=== PATIENT | male | born 1955 | race African-American/Black ===

== ENCOUNTER 2016-10-04 08:40 | Emergency (ER) | payer OTHER ==
[~2016-10-04] VITALS: Ht 177.8 cm; Wt 88.6 kg
[~2016-10-04 08:40] MED LIST: DICL75 PO
[2016-10-04 08:42] VITALS: BP 167/98; PULSE 104; RESP 16; TEMP 98; O2SAT 98
[2016-10-04] MEDS ORDERED: [UNRECOGNIZED DRUG - CODE] IM (09:27)
--- NOTE | 2016-10-04 09:30 | PD ---
HPI Chief Complaint: Complaint Time Seen by Provider: 09:11 Travel History International Travel<30 days: No Contact w/Intl Traveler<30days: No Traveled to known affect area: No History of Present Illness HPI This is a 60-year-old male who used an injection prescribed to him for erectile dysfunction and had some bleeding afterwards which concerned him that he might of hit an artery. Medication is been using includes papaverine, phentolamine and alprostadil and he obtained it on the internet. He says it still oozing some. He said no swelling of his penis. He says the bleeding has decreased that he just wanted to come to the emergency department to get checked. PFSH Past Medical History Asthma: Yes Cerebrovascular Accident: No Diabetes: No Hypertension: Yes Respiratory: Yes (ASTHMA) Immunizations Current: Yes Myocardial Infarction: No Social History Alcohol Use: Yes (OCCASIONALLY) Tobacco Use: No Substance Use: No Allergies-Medications (Allergen,Severity, Reaction): Uncoded Allergies: ASTHMA MED (Allergy, Severe, 05/11/16) Reported Meds & Prescriptions Reported Meds & Active Scripts Active Reported Papaverine Inj (Papaverine HCl) 30 Mg/Ml Inj 15 Mg IM ONCE Review of Systems Except as stated in HPI: all other systems reviewed are Neg Physical Exam Narrative GENERAL: Well-appearing, no acute distress, nontoxic SKIN: Warm and dry. HEAD: Atraumatic. Normocephalic. ENT: No nasal bleeding or discharge. Moist mucous membranes : dark blood at the urethral meatus, no swelling or deformity of the penis MUSCULOSKELETAL: No obvious deformities. NEUROLOGICAL: Awake and alert. No obvious cranial nerve deficits. Motor grossly within normal limits. Normal speech. PSYCHIATRIC: Appropriate mood and affect; insight and judgment normal. Data Data Last Documented VS Vital Signs Date Time Temp Pulse Resp B/P Pulse Ox O2 Delivery O2 Flow Rate FiO2 10/04/16 09:28 18 10/04/16 08:42 98.0 104 167/98 98 MDM Medical Decision Making Medical Screen Exam Complete: Yes Emergency Medical Condition: Yes Differential Diagnosis Venous injury, arterial injury, urinary tract infection, malignancy Narrative Course This is a 60-year-old male who presents the emergency department with bleeding from the urethral meatus following an injection of and a rectal dysfunction medication. Currently his bleeding has subsided. He has a benign exam. I do think he requires follow-up with the urologist and I explained that to him. At this time I don't think this reflects a urologic emergency. Patient will be discharged home. Diagnosis Primary Impression: Penile bleeding Referrals: Landen Garcia MD Patient Instructions: General Instructions Additional Instructions: If you develop increasing bleeding, swelling, severe pain or inability to urinate return to the emergency room. Follow-up with a urologist without fail. Med/Other Pt SpecificInfo: No Change to Meds Disposition: 01 DISCHARGE HOME Condition: Stable Hellen Trujillo MD Oct 04, 2016 09:30
== END 2016-10-04 09:48 | disposition home or self-care (01) ==
LOC: NEPE 08:40
DX: T80.89XA Other complications following infusion, transfusion and therapeutic injection, initial encounter (principal); N52.9 Male erectile dysfunction, unspecified; J45.909 Unspecified asthma, uncomplicated; I10 Essential (primary) hypertension; N36.8 Other specified disorders of urethra
CPT/HCPCS: 99283

== ENCOUNTER 2017-03-11 09:12 | Emergency (ER) | payer OTHER ==
[~2017-03-11] VITALS: Ht 177.8 cm; Wt 90.0 kg
[~2017-03-11 09:12] MED LIST changes: -DICL75 PO; +[UNRECOGNIZED DRUG - CODE] IM
[2017-03-11 09:14] VITALS: BP 167/103; PULSE 81; RESP 18; TEMP 98.4; O2SAT 97
[2017-03-11] MEDS ORDERED: ACETAMINOPHEN 325 MG TAB PO ONE (09:45)
--- NOTE | 2017-03-11 09:49 | PD ---
HPI Chief Complaint: Injury Time Seen by Provider: 09:43 Travel History International Travel<30 days: No Contact w/Intl Traveler<30days: No Traveled to known affect area: No History of Present Illness HPI 61-year-old male presents emergency Department with complaint of right knee pain after tripping over a chair and falling and landing on his right knee. Denies hitting his head or loss of consciousness. Denies anticoagulants. Denies neck pain or back pain. Pain is to the patellar aspect. Is ambulatory on the affected extremity. Denies paresthesias, loss of sensation, decreased range of motion or decreased strength to the affected extremity. Has not taken any medications or tried any treatments to relieve the symptoms. Pain is aggravated with ambulation and movement. Allergy to an asthma medication that he doesn't know the name of. Has no other medical complaints. No other modifying factors or associated signs and symptoms. PFSH Past Medical History Asthma: Yes Cerebrovascular Accident: No Diabetes: No Hypertension: Yes Respiratory: Yes (ASTHMA) Immunizations Current: Yes Myocardial Infarction: No Past Surgical History Surgical History: No Previous Surgery Social History Alcohol Use: Yes (OCCASIONALLY) Tobacco Use: No Substance Use: No Allergies-Medications (Allergen,Severity, Reaction): Uncoded Allergies: ASTHMA MED (Allergy, Severe, 05/11/16) Reported Meds & Prescriptions Reported Meds & Active Scripts Active Reported Papaverine Inj (Papaverine HCl) 30 Mg/Ml Inj 15 Mg IM ONCE Review of Systems Except as stated in HPI: all other systems reviewed are Neg Physical Exam Narrative GENERAL: Well-nourished, well-developed male patient, in no acute distress; afebrile, nontoxic-appearing SKIN: Warm and dry. HEAD: Atraumatic. Normocephalic. EYES: Pupils equal and round. No scleral icterus. No injection or drainage. ENT: Mucosa pink and moist. Airway patent. NECK: Trachea midline. CARDIOVASCULAR: Regular rate. RESPIRATORY: No accessory muscle use. GASTROINTESTINAL: Rounded. MUSCULOSKELETAL: Right knee nonedematous, nonerythematous, and without ecchymosis; full range of motion and flexion to 90; point tenderness to the patellar aspect; joint stable with negative drawer test; no obvious deformity. Right Lower extremity is supple and non-tense with 2+ pedal pulse and sensory intact and without erythema or edema. Ambulatory in the hallway with normal gait. NEUROLOGICAL: Awake and alert. Oriented 3. No obvious cranial nerve deficits. Motor grossly within normal limits. Normal speech. PSYCHIATRIC: Appropriate mood and affect; insight and judgment normal. Data Data Last Documented VS Vital Signs Date Time Temp Pulse Resp B/P Pulse Ox O2 Delivery O2 Flow Rate FiO2 03/11/17 09:14 98.4 81 18 167/103 97 Room Air Orders Knee, Complete (4vws) (03/11/17 09:42) Acetaminophen (Tylenol) (03/11/17 09:45) MDM Medical Decision Making Medical Screen Exam Complete: Yes Emergency Medical Condition: Yes Medical Record Reviewed: Yes Differential Diagnosis Patellar fracture, knee contusion, fall Narrative Course 61-year-old male with right knee injury after a mechanical fall today. Tylenol administered in the ER. Right knee x-ray ordered. 1114: Last 24 hours Impressions Knee X-Ray 03/11/17941 Signed Impressions: Service Date/Time: February 09:54 - CONCLUSION: Suspected osteochondral fracture of the inferior distal patella. Correlation with physical examination is recommended. MRI examination may be performed if there is continued clinical uncertainty. Iván Paul MD Canvas knee splint ordered. Crutches ordered for support. Instructed patient to follow up with orthopedics. 1121: Patient is refusing canvas knee splint and crutches. I discussed leaving AMA with the patient. AMA: The risks of leaving against medical advice without further evaluation treatment were discussed with the patient. These risks include cardiac dysfunction, cardiac dysrhythmia, possible heart attack, possible stroke or . The patient indicated understanding of these risks and appeared to have the capacity to make this decision. Diagnosis Primary Impression: Left against medical advice Disposition: 07 AGAINST MEDICAL ADVICE Socorro Hillman Mar 11, 2017 09:49
--- NOTE | 2017-03-11 10:49 | RADRPT ---
EXAM DATE/TIME: 03/11/2017 09:54 [facility] COMPARISON: No previous studies available for comparison. INDICATIONS : Right knee pain; fall today. MEDICAL HISTORY : None. SURGICAL HISTORY : None. ENCOUNTER: Initial ACUITY: 1 day PAIN SCORE: 5/10 LOCATION: anterior knee FINDINGS: There is an apparent minimally displaced osteochondral fracture of the inferior distal patella. [place] us structures are otherwise intact. There is no significant joint effusion. CONCLUSION: Suspected osteochondral fracture of the inferior distal patella. Correlation with physical examinatio n is recommended. MRI examination may be performed if there is continued clinical uncertainty. Iván Paul MD on March 11, 2017 at 10:36 Board Certified Radiologist. This report was verified electronically.
[2017-03-11] MEDS ORDERED: IBUP800T23 PO (11:18)
== END 2017-03-11 11:41 | disposition left against medical advice (07) ==
LOC: NEPD 09:12
DX: M25.561 Pain in right knee (principal); J45.909 Unspecified asthma, uncomplicated; I10 Essential (primary) hypertension; Z79.899 Other long term (current) drug therapy
CPT/HCPCS: 73564; 99283

== ENCOUNTER 2017-03-12 12:17 | Emergency (ER) | payer OTHER ==
[~2017-03-12] VITALS: Ht 177.8 cm; Wt 90.0 kg
[2017-03-12 12:18] VITALS: BP 157/91; PULSE 73; RESP 15; TEMP 98.2; O2SAT 99
--- NOTE | 2017-03-12 12:28 | PD ---
HPI Chief Complaint: Injury Time Seen by Provider: 12:25 Travel History International Travel<30 days: No Contact w/Intl Traveler<30days: No Traveled to known affect area: No History of Present Illness HPI 61-year-old male here requesting knee splint after he left AMA yesterday. He had had a mechanical fall was seen in the ER with an x-ray showing a possible osteochondral fracture of the inferior distal patella. Patient was recommended to do knee immobilizer, crutches and follow-up with or there as an outpatient for possible MRI but he left AMA. He is back now requesting splint and crutches. PFSH Past Medical History Asthma: Yes Cerebrovascular Accident: No Diabetes: No Hypertension: Yes Respiratory: Yes (ASTHMA) Immunizations Current: Yes Myocardial Infarction: No Social History Alcohol Use: Yes (OCCASIONALLY) Tobacco Use: No Substance Use: No Allergies-Medications (Allergen,Severity, Reaction): Uncoded Allergies: ASTHMA MED (Allergy, Severe, 05/11/16) Reported Meds & Prescriptions Reported Meds & Active Scripts Active Reported Papaverine Inj (Papaverine HCl) 30 Mg/Ml Inj 15 Mg IM ONCE Review of Systems Except as stated in HPI: all other systems reviewed are Neg Physical Exam Narrative GENERAL: Well-appearing male in no acute distress SKIN: Focused skin assessment warm/dry. CARDIOVASCULAR: Regular rate and rhythm. RESPIRATORY: No accessory muscle use. MUSCULOSKELETAL: Right knee with swelling about the patella minimal with mild tenderness palpation in this region. Full pain-free range of motion NEUROLOGICAL: Awake and alert. Normal speech. PSYCHIATRIC: Appropriate mood and affect; insight and judgment normal. Data Data Last Documented VS Vital Signs Date Time Temp Pulse Resp B/P Pulse Ox O2 Delivery O2 Flow Rate FiO2 03/12/17 12:18 98.2 73 15 157/91 99 Orders ^ Knee Immobilizer (03/12/17 12:26) Crutches (03/12/17 12:26) MDM Medical Decision Making Medical Screen Exam Complete: Yes Emergency Medical Condition: Yes Medical Record Reviewed: Yes Differential Diagnosis 61-year-old male with knee pain after fall, x-ray yesterday shows possible osteochondral fracture of the patella. He refused crutches, immobilizer and left AMA. Narrative Course Patient was agreeable to crutches and knee immobilizer, outpatient orthopedic surgery follow-up. Diagnosis Primary Impression: Patellar fracture Qualified Code: S82.014A - Closed nondisplaced osteochondral fracture of right patella, initial encounter Referrals: Emory Mei MD call for appointment Additional Instructions: Knee immobilizer and crutches. Follow-up with orthopedic surgeon as discussed. Med/Other Pt SpecificInfo: No Change to Meds Disposition: 01 DISCHARGE HOME Condition: Stable Lesia Villeda MD Mar 12, 2017 12:28
== END 2017-03-12 12:50 | disposition home or self-care (01) ==
LOC: NEPD 12:17
DX: S82.001A Unspecified fracture of right patella, initial encounter for closed fracture (principal); J45.909 Unspecified asthma, uncomplicated; I10 Essential (primary) hypertension; W18.30XA Fall on same level, unspecified, initial encounter; Z79.899 Other long term (current) drug therapy
CPT/HCPCS: 99282; E0113; L1830

== ENCOUNTER 2017-04-20 10:51 | Emergency (ER) | payer OTHER ==
[~2017-04-20] VITALS: Ht 177.8 cm; Wt 90.0 kg
[2017-04-20 10:53] VITALS: BP 187/109; PULSE 97; RESP 15; TEMP 98.2; O2SAT 99
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
[2017-04-20] MEDS ORDERED: IBUP800T23 PO (11:39)
[2017-04-20] MEDS ORDERED: ROBA500T PO (11:39)
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
[2017-04-20] MEDS ORDERED: METHOCARBAMOL 500 MG TAB PO ONE (11:45)
[2017-04-20] MEDS ORDERED: IBUPROFEN 800 MG TAB PO ONE (11:45)
== END 2017-04-20 12:00 | disposition home or self-care (01) ==
LOC: NEPK 10:51
DX: S39.012A Strain of muscle, fascia and tendon of lower back, initial encounter (principal); S16.1XXA Strain of muscle, fascia and tendon at neck level, initial encounter; J45.909 Unspecified asthma, uncomplicated; I10 Essential (primary) hypertension; V49.40XA Driver injured in collision with unspecified motor vehicles in traffic accident, initial encounter
CPT/HCPCS: 99283

== ENCOUNTER 2017-04-25 19:40 | Observation (INO) | payer OTHER ==
[~2017-04-25 19:40] MED LIST changes: +IBUP800T23 PO; +ROBA500T PO
[2017-04-25 19:42] VITALS: BP 194/92; PULSE 74; RESP 16; TEMP 99.2; O2SAT 98
[2017-04-25] MEDS ORDERED: LISI-515 PO (19:49)
--- NOTE | 2017-04-25 20:02 | PD ---
HPI Chief Complaint: Chest Pain Time Seen by Provider: 20:02 Travel History International Travel<30 days: No Contact w/Intl Traveler<30days: No Traveled to known affect area: No History of Present Illness HPI 61-year-old male with history of asthma and hypertension presents to the emergency department for evaluation of intermittent left-sided chest pain that radiates to his lateral left chest occurring over the last 3 days. Patient states it happens only when he is standing up working or doing any activity. He is currently not having any pain. Denies any shortness of breath associated with it. He has no nausea or vomiting. No episodes of diaphoresis. Patient states he recently started lisinopril for hypertension and has been taking this for the last 3 days. He is followed by Dr. Villafana. He has no cardiac history. No history of PE or DVT. He has no other symptoms reported this time. PFSH Past Medical History Asthma: Yes Cerebrovascular Accident: No Diabetes: No Diminished Hearing: No Hypertension: Yes Respiratory: Yes (ASTHMA) Immunizations Current: Yes Myocardial Infarction: No Past Surgical History Surgical History: No Previous Surgery Social History Alcohol Use: Yes (OCCASIONALLY) Tobacco Use: No Substance Use: No Allergies-Medications (Allergen,Severity, Reaction): Uncoded Allergies: ASTHMA MED (Allergy, Severe, 05/11/16) Reported Meds & Prescriptions Reported Meds & Active Scripts Active Ibuprofen 800 Mg Tab 800 Mg PO Q8H PRN Robaxin (Methocarbamol) 500 Mg Tab 500 Mg PO QID PRN Reported Lisinopril 20 Mg Tab 20 Mg PO DAILY Review of Systems Except as stated in HPI: all other systems reviewed are Neg Physical Exam Narrative GENERAL: Well-nourished male patient, ambulatory and in no acute distress SKIN: Focused skin assessment warm/dry. HEAD: Atraumatic. Normocephalic. EYES: Pupils equal and round. No scleral icterus. No injection or drainage. ENT: No nasal bleeding or discharge. Mucous membranes pink and moist. NECK: Trachea midline. No JVD. CARDIOVASCULAR: Regular rate and rhythm. No murmur appreciated. RESPIRATORY: No accessory muscle use. Clear to auscultation. Breath sounds equal bilaterally. GASTROINTESTINAL: Abdomen soft, non-tender, nondistended. No guarding. No rebound tenderness. Hepatic and splenic margins not palpable. MUSCULOSKELETAL: No obvious deformities. No clubbing. No cyanosis. No edema. NEUROLOGICAL: Awake and alert. No obvious cranial nerve deficits. Motor grossly within normal limits. Normal speech. PSYCHIATRIC: Appropriate mood and affect; insight and judgment normal. Data Data Last Documented VS Vital Signs Date Time Temp Pulse Resp B/P Pulse Ox O2 Delivery O2 Flow Rate FiO2 04/25/17 20:07 88 16 155/88 97 Room Air 04/25/17 19:42 99.2 Orders Electrocardiogram (04/25/17 20:) Basic Metabolic Panel (Bmp) (04/25/17 20:) Ckmb (Isoenzyme) Profile (04/25/17 20:) Complete Blood Count With Diff (04/25/17 20:) Magnesium (Mg) (04/25/17:) Prothrombin Time / Inr (Pt) (04/25/17:) Act Partial Throm Time (Ptt) (04/25/17:) Troponin I (04/25/17 20:) Lipase (04/25/17 20:) Chest, Single Ap (04/25/17 20:) Ecg Monitoring (04/25/17 20:) Bilateral Bp Monitoring (04/25/17 20:) Iv Access Insert/Monitor (04/25/17 20:) Oximetry (04/25/17 20:) Oxygen Administration (04/25/17 20:) Aspirin Chew (Aspirin Chew) (04/25/17 20:15) Sodium Chloride 0.9% Flush (Ns Flush) (04/25/17 20:15) Sodium Chlorid 0.9% 500 Ml Inj (Ns 500 M (04/25/17 20:15) CKMB (04/25/17 20:14) CKMB% (04/25/17 20:14) Sodium Chlor 0.9% 1000 Ml Inj (Ns 1000 M (04/25/17 21:15) Morphine Inj (Morphine Inj) (04/25/17 21:30) Ondansetron Inj (Zofran Inj) (04/25/17 21:30) Labs Laboratory Tests Test 04/25/17 20:14 White Blood Count 3.8 TH/MM3 Red Blood Count 5.28 MIL/MM3 Hemoglobin 14.7 GM/DL Hematocrit 45.6 % Mean Corpuscular Volume 86.4 FL Mean Corpuscular Hemoglobin 27.8 PG Mean Corpuscular Hemoglobin 32.2 % Concent Red Cell Distribution Width 13.0 % Platelet Count 186 TH/MM3 Mean Platelet Volume 7.5 FL Neutrophils (%) (Auto) 52.9 % Lymphocytes (%) (Auto) 25.6 % Monocytes (%) (Auto) 20.0 % Eosinophils (%) (Auto) 1.1 % Basophils (%) (Auto) 0.4 % Neutrophils # (Auto) 2.0 TH/MM3 Lymphocytes # (Auto) 1.0 TH/MM3 Monocytes # (Auto) 0.8 TH/MM3 Eosinophils # (Auto) 0.0 TH/MM3 Basophils # (Auto) 0.0 TH/MM3 CBC Comment DIFF FINAL Differential Comment Prothrombin Time 11.2 SEC Prothromb Time International 1.0 RATIO Ratio Activated Partial 26.4 SEC Thromboplast Time Sodium Level 138 MEQ/L Potassium Level 3.9 MEQ/L Chloride Level 104 MEQ/L Carbon Dioxide Level 26.1 MEQ/L Anion Gap 8 MEQ/L Blood Urea Nitrogen 19 MG/DL Creatinine 1.80 MG/DL Estimat Glomerular Filtration 47 ML/MIN Rate Random Glucose 135 MG/DL Calcium Level 7.8 MG/DL Magnesium Level 2.2 MG/DL Total Creatine Kinase 259 U/L Creatine Kinase MB 1.4 NG/ML Troponin I LESS THAN 0.02 NG/ML Lipase 1488 U/L [facility] Medical Decision Making Medical Screen Exam Complete: Yes Emergency Medical Condition: Yes Medical Record Reviewed: Yes Differential Diagnosis Chest wall pain versus ACS versus pleuritic pain versus visceral pain Narrative Course 61-year-old male presents for scar in for evaluation of left-sided chest pain. Patient is currently not having any pain. He is hypertensive here in the emergency department initially. Patient was given aspirin and chest pain workup is initiated. CBC is with leukopenia 3.8. No other acute concern. BMP is with the unit 19, creatinine 1.8, GFR 47. Troponin is less than 0.02. Lipase is 1488. Initial plan was to admit the patient observation of chest pain center however with elevated lipase, call has been placed to flu shots less for observation admission. Diagnosis Primary Impression: Chest pain Qualified Code: R07.9 - Chest pain, unspecified type Additional Impressions: Pancreatitis Qualified Code: K85.90 - Acute pancreatitis, unspecified complication status, unspecified pancreatitis type Hypertension Qualified Code: I10 - Essential hypertension Admitting Information Admitting Physician Requests: Observation Condition: Stable DcMelissa YOUNG Apr 25, 2017 20:02
[2017-04-25 20:05] VITALS: BP 162/82; PULSE 87; RESP 16; O2SAT 96
[2017-04-25 20:07] VITALS: BP 155/88; PULSE 88; RESP 16; O2SAT 97
[2017-04-25] MEDS ORDERED: SODIUM CHLORID 0.9% 500 ML INJ 500 ML IV ONE (20:15)
[2017-04-25] MEDS ORDERED: SODIUM CHLORIDE 0.9% FLUSH 10 ML FLUSH IVF PRN (20:15)
[2017-04-25] MEDS ORDERED: ASPIRIN 81 MG CHEW TAB PO ONE (20:15)
--- NOTE | 2017-04-25 20:18 | RADRPT ---
EXAM DATE/TIME: 04/25/2017 19:57 [facility] COMPARISON: No previous studies available for comparison. INDICATIONS : Chest pain MEDICAL HISTORY : Hypertension. SURGICAL HISTORY : None. ENCOUNTER: Initial ACUITY: 3 days PAIN SCORE: 3/10 LOCATION: chest FINDINGS: Single AP view of the chest. The lungs are clear. Cardiomediastinal silhouette within normal limits. No evidence of pleural effusion or pneumothorax. CONCLUSION: No acute cardiopulmonary disease identified. Jarrell Agudelo MD on April 25, 2017 at 20:15 Board Certified Radiologist. This report was verified electronically.
[2017-04-25 20:34] LABS: BASOPHIL % 0.4 % (0.0-2.0); EOSINOPHIL % 1.1 % (0.0-4.0); HEMATOCRIT 45.6 % (39.0-51.0); HEMO FLAGS DIFF FINAL; LYMPH % 25.6 % (9.0-44.0); MEAN CELL VOLUME 86.4 FL (80.0-100.0); MEAN CORPUSCULAR HEMOGLOBIN 27.8 PG (27.0-34.0); MEAN CORPUSCULAR HGB CONC 32.2 % (32.0-36.0); NEUT % 52.9 % (16.0-70.0); PLATELET COUNT 186 TH/MM3 (150-450); RED BLOOD COUNT 5.28 MIL/MM3 (4.50-5.90); WHITE BLOOD COUNT 3.8 TH/MM3 (4.0-11.0)
[2017-04-25 20:41] LABS: APTT (PATIENT) 26.4 SEC (24.3-30.1); PROTHROMBIN TIME - PATIENT 11.2 SEC (9.8-11.6)
[2017-04-25 20:54] LABS: ANION GAP 8 MEQ/L (5-15); BICARBONATE 26.1 MEQ/L (21.0-32.0); BLOOD UREA NITROGEN 19 MG/DL (7-18); CHLORIDE 104 MEQ/L (98-107); GLOMERULAR FILTRATION RATE 47 ML/MIN (>89); MAGNESIUM 2.2 MG/DL (1.5-2.5); POTASSIUM 3.9 MEQ/L (3.5-5.1); SODIUM (NA) 138 MEQ/L (136-145)
[2017-04-25 21:00] LABS: CREATINE KINASE 259 U/L (39-308)
[2017-04-25 21:12] LABS: CKMB 1.4 NG/ML (0.5-3.6)
[2017-04-25] MEDS ORDERED: SODIUM CHLOR 0.9% 1000 ML INJ 1,000 ML IV ONE (21:15)
[2017-04-25] MEDS ORDERED: ONDANSETRON HCL 4 MG/2 ML VIAL IV PUSH ONE (21:30)
[2017-04-25] MEDS ORDERED: MORPHINE SULFATE 4 MG/ML INJ IV PUSH ONE (21:30)
[2017-04-26] VITALS (10 sets, daily range): BP systolic 135–177; BP diastolic 72–96; PULSE 56–77; RESP 16–20; TEMP 98.1–99.8; O2SAT 96–99
[2017-04-26] MEDS: SODIUM CHLOR 0.9% 1000 ML INJ 1,000 ML IV SCH ×3 (01:20→21:10)
[2017-04-26] MEDS ORDERED: ACETAMINOPHEN 325 MG TAB PO PRN (01:30)
[2017-04-26] MEDS ORDERED: NALOXONE HCL 0.4 MG/ML AMP IV PRN (01:30)
[2017-04-26] MEDS ORDERED: BISACODYL 10 MG SUPP RECTAL PRN (01:30)
[2017-04-26] MEDS ORDERED: SENNOSIDES 8.6 MG TAB PO PRN (01:30)
[2017-04-26] MEDS ORDERED: ONDANSETRON HCL 4 MG/2 ML VIAL IVP PRN (01:30)
[2017-04-26] MEDS ORDERED: MAGNESIUM HYDROXIDE SUSP 30 ML CUP PO PRN (01:30)
[2017-04-26] MEDS ORDERED: SODIUM CHLORIDE 0.9% FLUSH 10 ML FLUSH IV FLUSH PRN (01:30)
[2017-04-26] MEDS ORDERED: MORPHINE SULFATE 4 MG/ML INJ IV PRN ×2 (01:30)
--- NOTE | 2017-04-26 08:51 | MH ---
cc: NELSY WARNER MD DATE OF ADMISSION: 04/25/2017 DATE OF : 1955 CHIEF COMPLAINT Chest pain, left breast area and below. Travel in last 30 days: None. HISTORY OF PRESENT ILLNESS This is a pleasant 61-year-old male who came to the emergency room with left-sided chest pain that is below his breast line, more in the left epigastric region that radiates into his abdomen. He states that he has been sick for the past 3 days and felt like he needed to come in to have it checked. The patient denies any nausea and vomiting. He denies any headache. He does have a history of hypertension. His heart rate on admission was 87 and is now 56. The patient currently takes lisinopril. The patient has not been eating or drinking as much as he normally would for the past 3 days. He denies any radiation of his pain up into his neck, shoulders or arms. It seems to be more in the upper abdomen, left upper abdomen region. The patient notes the pain is worse when he is up moving around or doing any activity. The patient currently still works two different jobs. Note, the patient denies any dysuria or problems voiding. PAST MEDICAL HISTORY 1. Hypertension. 2. Asthma. 3. Long-term alcohol use. PAST SURGICAL HISTORY No surgeries. ALLERGIES ASTHMA MEDS. MEDICATION 1. Ibuprofen. 2. Robaxin. 3. Lisinopril. SOCIAL HISTORY The patient is , lives alone. He does have two children, a daughter who is close by and available if needed. He does note alcohol daily, usually rum and coke, but states that it is not a large amount of alcohol, but it is daily. No tobacco, no illicit drugs. REVIEW OF SYSTEMS A 12-point review was obtained. Positives noted in the HPI which include his left upper quadrant lower chest pain, worse with activity. Denies any shortness of breath. Other systems negative or unremarkable unless mentioned in HPI. VITAL SIGNS: Temperature is 98.4, pulse 56, respirations 18, blood pressure 139/75, O2 sat 96 currently on room air. PHYSICAL EXAMINATION GENERAL: Well-nourished, well-developed black male, looks to be younger than his stated age, resting in the bed. He is alert, oriented and a good historian. SKIN: Warm and dry. Mucous membranes are pink and moist. HEENT: Atraumatic, normocephalic. PERRLA. No scleral icterus. His throat is clear. NECK: Neck is supple. CARDIOVASCULAR: S1, S2. Rhythm is slow but regular, no audible murmurs, rubs, gallops. RESPIRATORY: Essentially clear anteriorly and posteriorly with no wheezes or rhonchi. ABDOMEN: Abdomen is round, soft, some minimal tenderness is noted in the left upper quadrant but no guarding. Bowel sounds are active. MUSCULOSKELETAL: Moves all extremities with purpose. No edema. No obvious deformities. NEUROLOGIC: He is alert, oriented, good historian. Speech is clear. PSYCHIATRIC: Mood and affect are appropriate. DIAGNOSTIC DATA WBC count 3.8, RBC 5.28, hemoglobin 14.7, hematocrit 45.6, platelet count 186, monocyte count 20, PT/INR is 1. Chemistry sodium 138, potassium 3.9, chloride 104, carbon dioxide 26.1, BUN 19, creatinine 1.8, GFR 47, glucose is 135, calcium 7.8. Troponin x2 are less than 0.02. The lipase level 1488. IMAGING STUDIES Show chest x-ray to be no acute cardiopulmonary disease. ASSESSMENT/PLAN Pancreatitis probable, hypertension, history of, controlled. Left upper quadrant pain, chest pain, left epigastric without radiation, alcohol dependence and abuse. Our plan is to admit, monitor his labs, keep him on telemetry. Will rule out RI with troponin levels, currently the first two are negative. The patient can have oxygen if he needs it. In the emergency room he was treated with aspirin and a bolus of normal saline. He currently still has IV fluids on for gentle hydration, we will maintain those for now. DVT prophylaxis with heparin subcu. Will give him p.r.n. meds for pain and nausea. Bowel regimen; currently keep him on a clear liquid diet. He can be out of bed only with assistance. His admitting is for observation at this time but will have GI consult for their expert opinion since this is the first time he has ever had any dealings with possible pancreatitis. He is full code, full aggressive care and we will continue to follow. Dictated by: HANNAH Mckinley MD CRISTIANE Hansen/ROSA /8:09 AM /8:28 AM seen, examined by myself, Dr Warner, today Discussed with patient His pain is in the left upper quadrant left lower chest area He has elevated lipase GI following CT of the abdomen pending He is recommended to quit alcohol Discussed with mid level provider The exam, history, and the medical decision-making described in the above note were completed with the assistance of the mid-level provider. I reviewed the findings presented. I attest that I had a [id number] encounter with the patient on the same day, and personally performed and documented my assessment and findings in the medical record. MARGOT
[2017-04-26] MEDS: PANTOPRAZOLE SOD 40 MG DELAYED RELEASE TAB PO SCH (09:37)
[2017-04-26] MEDS: HEPARIN SODIUM - SQ 10,000 UNITS/ML VIAL SQ SCH ×2 (09:38→21:09)
[2017-04-26] MEDS: SODIUM CHLORIDE 0.9% FLUSH 10 ML FLUSH IV FLUSH SCH ×2 (09:38→21:09)
[2017-04-26] MEDS ORDERED: cloNIDine HCL 0.1 MG TAB PO PRN (12:00)
--- NOTE | 2017-04-26 12:10 | PD.CONS ---
HPI History of Present Illness This is a 61 year old male who presented to the ER with chest pain, he says he was also having high blood pressure. The pain was in his rib cage on left side. Onset 3d ago, constant, is better now since admission. He noticed the pains on left side while working as a [employer], standing up, had some relief when he sat down. When he first had pain he said his BP was 195/100. Denies SOB. Denies fever, n/v, diarrhea, blood in stool, weight loss. Denies hx pancreatitis, problems with gall bladder or liver. He has had colonoscopy 1 month and a half ago but cannot recall with who and says "everything was good." He does consume ETOH daily, 1 drink daily. Currently he is denying pain and asking to go home. Tolerating clears. (Lovely Harvey) PFSH Past Medical History asthma HTN Past Surgical History none (Lovely Harvey) Uncoded Allergies: ASTHMA MED (Allergy, Severe, 05/11/16) Family History none Social History drinks 1 shot daily no tobacco or illicit drug use (Lovely Harvey) Review of Systems Constitutional: DENIES: Fever Eyes: DENIES: Blurred vision Ears, nose, mouth, throat: DENIES: Hearing loss Respiratory: DENIES: Hemoptysis, Shortness of breath Cardiovascular: DENIES: Palpitations, Syncope Gastrointestinal: COMPLAINS OF: Abdominal pain, DENIES: Black stools, Bloody stools, Constipation, Diarrhea, Nausea, Vomiting Genitourinary: DENIES: Hematuria Musculoskeletal: DENIES: Joint Swelling Integumentary: DENIES: Jaundice Hematologic/lymphatic: DENIES: Bruising Neurologic: DENIES: Abnormal gait Psychiatric: DENIES: Confusion (Lovely Harvey) GI Exam Vitals I&O Vital Signs Date Time Temp Pulse Resp B/P Pulse Ox O2 Delivery O2 Flow Rate FiO2 04/26/17 11:10 99.5 77 18 177/96 99 04/26/17 08:09 98.1 61 18 162/91 96 04/26/17 04:12 98.4 56 18 139/75 96 04/26/17 04:07 57 04/26/17 02:59 98.1 60 16 164/79 96 04/26/17 00:03 64 16 149/72 96 Room Air 04/25/17 20:07 88 16 155/88 97 Room Air 04/25/17 20:05 87 16 162/82 96 Room Air 04/25/17 20:04 Room Air 04/25/17 19:42 99.2 74 16 194/92 98 Room Air Imaging Last Impressions Chest X-Ray 04/25/172000 Signed Impressions: Service Date/Time: Tuesday, April 25, 2017 19:57 - CONCLUSION: No acute cardiopulmonary disease identified. Jarrell Agudelo MD Laboratory Test 04/25/17 04/26/17 20:14 01:45 White Blood Count 3.8 TH/MM3 Red Blood Count 5.28 MIL/MM3 Hemoglobin 14.7 GM/DL Hematocrit 45.6 % Mean Corpuscular Volume 86.4 FL Mean Corpuscular Hemoglobin 27.8 PG Mean Corpuscular Hemoglobin 32.2 % Concent Red Cell Distribution Width 13.0 % Platelet Count 186 TH/MM3 Mean Platelet Volume 7.5 FL Neutrophils (%) (Auto) 52.9 % Lymphocytes (%) (Auto) 25.6 % Monocytes (%) (Auto) 20.0 % Eosinophils (%) (Auto) 1.1 % Basophils (%) (Auto) 0.4 % Neutrophils # (Auto) 2.0 TH/MM3 Lymphocytes # (Auto) 1.0 TH/MM3 Monocytes # (Auto) 0.8 TH/MM3 Eosinophils # (Auto) 0.0 TH/MM3 Basophils # (Auto) 0.0 TH/MM3 CBC Comment DIFF FINAL Differential Comment Prothrombin Time 11.2 SEC Prothromb Time International 1.0 RATIO Ratio Activated Partial 26.4 SEC Thromboplast Time Sodium Level 138 MEQ/L Potassium Level 3.9 MEQ/L Chloride Level 104 MEQ/L Carbon Dioxide Level 26.1 MEQ/L Anion Gap 8 MEQ/L Blood Urea Nitrogen 19 MG/DL Creatinine 1.80 MG/DL Estimat Glomerular Filtration 47 ML/MIN Rate Random Glucose 135 MG/DL Calcium Level 7.8 MG/DL Magnesium Level 2.2 MG/DL Total Creatine Kinase 259 U/L Creatine Kinase MB 1.4 NG/ML Troponin I LESS THAN 0.02 LESS THAN 0.02 NG/ML NG/ML Lipase 1488 U/L Physical Examination HEENT: PERRL; normocephalic; atraumatic; no jaundice. CHEST: CTA CARDIAC: RRR ABDOMEN: Soft, nondistended, nontender; no hepatosplenomegaly; bowel sounds are present in all four quadrants. EXTREMITIES: No clubbing, cyanosis, or edema. SKIN: Normal; no rash; no jaundice. BIOMETRICS HEAD: No focal deficits; alert and oriented times three. (Lovely Harvey) Assessment and Plan Plan ASSESSMENT - atypical chest pain - 3 d ago onset left side chest pain under ribs, worse when standing. Now improved, pt denies pain. Lipase elevated 1500. CMP pending. No prior hx pancreatitis. Pt had normal colonoscopy 2m ago. tolerating clears. PLAN - CT w/o contrast - LFTs - monitor lipase - clears Further recs to follow This pt seen by myself and Dr Grayson and this note is written on his behalf. ( Lovely Harvey) Physician Comments Patient seen and examined Agree with above Continue with current supportive care Monitor labs CT of the abdomen unremarkable for pancreatitis Symptoms are not characteristic for pancreatitis I doubt the presence of pancreatitis at this point Most likely patient has musculoskeletal pain Lipase elevation may still be secondary to pancreatic injury secondary to alcohol patient was advised to quit alcohol intake If his lipase is showing continued decline tomorrow he may be discharged from a GI standpoint follow-up as an outpatient (Damion Grayson MD) Lovely Harvey Apr 26, 2017 12:10 Damion Grayson MD Apr 26, 2017 21:42
[2017-04-26] MEDS: RESP: ALBUTEROL 2.5 MG/IPRATROPIUM 0.5 MG NEB (SCH) NEB ×2 (12:50→19:39)
[2017-04-26] MEDS ORDERED: DIATRIZOATE MEGLUM/DIATRIZOATE SOD 9 ML CUP PO ONE (13:45)
[2017-04-26] MEDS ORDERED: THIAMINE INJ 100 MG in SODIUM CHLORIDE 0.9% INJ 100 ML IV SCH (15:00)
[2017-04-26 16:45] LABS: BICARBONATE 28.7 MEQ/L (21.0-32.0); POTASSIUM 3.8 MEQ/L (3.5-5.1)
[2017-04-26 16:48] LABS: INDIRECT BILIRUBIN 0.4 MG/DL (0.0-0.8); TOTAL BILIRUBIN ADULT 0.5 MG/DL (0.2-1.0)
--- NOTE | 2017-04-26 16:49 | EKG ---
Date Performed: 04/25/2017 Time Performed: 20:05:18 PTAGE: 61 years EKG: Sinus rhythm POSSIBLE LEFT ATRIAL ENLARGEMENT SEPTAL MYOCARDIAL INFARCTION ABNORMAL ECG PREVIOUS TRACING : 01/26/2009 02.42 Compared to prior tracing no significant change DOCTOR: Demian Veloz Interpretating Date/Time 04/26/2017 16:46:52
--- NOTE | 2017-04-26 16:50 | EKG ---
Date Performed: 04/26/2017 Time Performed: 07:23:18 PTAGE: 61 years EKG: Sinus rhythm NORMAL ECG PREVIOUS TRACING : 04/26/2017 07.22 Compared to prior tracing no significant change DOCTOR: Demian Veloz Interpretating Date/Time 04/26/2017 16:47:03
[2017-04-26 17:20] LABS: HEMOGLOBIN A1a 0.9 %; HEMOGLOBIN A1b 0.7 %; HEMOGLOBIN Ao 87.3 %; HEMOGLOBIN F 0.7 %; HEMOGLOBIN LA1C 1.8 %; HEMOGLOBIN P3 3.3 %
--- NOTE | 2017-04-26 20:46 | RADRPT ---
EXAM DATE/TIME: 04/26/2017 18:14 [facility] COMPARISON: No previous studies available for comparison. INDICATIONS : Left upper quadrant pain. Elevated lipase. ORAL CONTRAST: Prescribed oral contrast ingested. RADIATION DOSE: 8.64 CTDIvol (mGy) MEDICAL HISTORY : Hypertension. Asthma. SURGICAL HISTORY : None. ENCOUNTER: Initial ACUITY: 3 days PAIN SCALE: 5/10 LOCATION: Left upper quadrant TECHNIQUE: Volumetric scanning of the abdomen and pelvis was performed. Using automated exposure control and ad justment of the mA and/or kV according to patient size, radiation dose was kept as low as reasonably achievable to obtain optimal diagnostic quality images. DICOM format image data is available electro nically for review and comparison. FINDINGS: LOWER LUNGS: The visualized lower lungs are clear. LIVER: Homogeneous density without lesion. There is no dilation of the biliary tree. No calcified gallston es. SPLEEN: Normal size without lesion. PANCREAS: Within normal limits. KIDNEYS: Normal in size and shape. There is no mass, stone, or hydronephrosis. ADRENAL GLANDS: Within normal limits. VASCULAR: There is no aortic aneurysm. BOWEL/MESENTERY: Mild sigmoid colon diverticulosis. No acute inflammatory changes are seen. There is no bowel obstruct ion. No free fluid. ABDOMINAL WALL: Within normal limits. RETROPERITONEUM: There is no lymphadenopathy. BLADDER: No wall thickening or mass. REPRODUCTIVE: Enlarged prostate. INGUINAL: There is no lymphadenopathy or hernia. MUSCULOSKELETAL: No acute bony abnormality demonstrated. Moderate to severe right and [id number] left hip osteoa rthritis noted. CONCLUSION: 1. No obstruction or acute inflammatory changes. No evidence of pancreatitis. 2. Mild sigmoid colon diverticulosis without diverticulitis. 3. Enlarged prostate. 4. Right greater than left hip osteoarthritis. Johnny Werner MD on April 26, 2017 at 20:43 Board Certified Radiologist. This report was verified electronically.
[2017-04-27] VITALS: PULSE 66
[2017-04-27 00:08] VITALS: BP 156/89; PULSE 68; RESP 18; TEMP 98.1; O2SAT 97
[2017-04-27 04:00] VITALS: PULSE 66
[2017-04-27 04:34] VITALS: BP 152/93; PULSE 73; TEMP 98.6; O2SAT 95
[2017-04-27 07:35] VITALS: PULSE 66
[2017-04-27] MEDS: RESP: ALBUTEROL 2.5 MG/IPRATROPIUM 0.5 MG NEB (SCH) NEB (07:35)
[2017-04-27 07:40] LABS: AUTOMATED NEUTROPHIL # 1.7 TH/MM3 (1.8-7.7); BASOPHIL % 0.4 % (0.0-2.0); EOSINOPHIL % 1.1 % (0.0-4.0); HEMO FLAGS DIFF FINAL; LYMPH % 31.7 % (9.0-44.0); LYMPHOCYTE # 1.1 TH/MM3 (1.0-4.8); MEAN CELL VOLUME 86.7 FL (80.0-100.0); MEAN CORPUSCULAR HEMOGLOBIN 27.9 PG (27.0-34.0); MEAN CORPUSCULAR HGB CONC 32.2 % (32.0-36.0); MONO % 17.3 % (0.0-8.0); NEUT % 49.5 % (16.0-70.0); PLATELET COUNT 164 TH/MM3 (150-450); RED BLOOD COUNT 5.42 MIL/MM3 (4.50-5.90); RED CELL DISTRIBUTION WIDTH 12.9 % (11.6-17.2); WHITE BLOOD COUNT 3.5 TH/MM3 (4.0-11.0)
[2017-04-27 07:53] VITALS: BP 176/90; PULSE 70; RESP 20; TEMP 99.1; O2SAT 96
[2017-04-27 08:07] LABS: ALT (GPT) 51 U/L (12-78); ANION GAP 7 MEQ/L (5-15); AST (GOT) 39 U/L (15-37); BICARBONATE 25.9 MEQ/L (21.0-32.0); BLOOD UREA NITROGEN 10 MG/DL (7-18); CHLORIDE 103 MEQ/L (98-107); GLOMERULAR FILTRATION RATE 68 ML/MIN (>89); POTASSIUM 3.7 MEQ/L (3.5-5.1); SODIUM (NA) 136 MEQ/L (136-145)
[2017-04-27 08:10] LABS: ALKALINE PHOSPHATASE 84 U/L (45-117); TOTAL BILIRUBIN ADULT 0.6 MG/DL (0.2-1.0)
--- NOTE | 2017-04-27 08:45 | HHI.PR ---
Subjective Subjective Remarks no cp no epigastric discomfort wants to eat no sob bp elevated 170s states he will not drink anymore Review of Systems Constitutional Constitutional Remarks 12 point ros completed, negative except as noted above Vitals/Results Intake & Output 04/26/17 04/26/17 04/27/17 15:00 23:00 07:00 Intake Total 900 ml Balance 900 ml Intake TPN/PPN 900 ml # Voids 1 Vital Signs Vital Signs Date Time Temp Pulse Resp B/P Pulse Ox O2 Delivery O2 Flow Rate FiO2 04/27/17 07:53 99.1 70 20 176/90 96 04/27/17 07:35 66 04/27/17 04:34 98.6 73 152/93 95 04/27/17 04:00 66 04/27/17 00:08 98.1 68 18 156/89 97 04/27/17 00:00 66 04/26/17 20:28 72 04/26/17 19:30 98.9 73 20 156/89 96 04/26/17 15:40 99.8 67 18 135/78 97 04/26/17 12:00 177/96 04/26/17 11:10 99.5 77 18 146/86 99 CBC/BMP: 04/27/17 0545 04/27/17 0545 Lab Results Laboratory Tests Test 04/26/17 04/26/17 04/27/17 12:45 16:12 05:45 Troponin I LESS THAN 0.02 NG/ML Sodium Level 136 MEQ/L 136 MEQ/L Potassium Level 3.8 MEQ/L 3.7 MEQ/L Chloride Level 102 MEQ/L 103 MEQ/L Carbon Dioxide Level 28.7 MEQ/L 25.9 MEQ/L Anion Gap 5 MEQ/L 7 MEQ/L Blood Urea Nitrogen 11 MG/DL 10 MG/DL Creatinine 1.29 MG/DL 1.31 MG/DL Estimat Glomerular Filtration 69 ML/MIN 68 ML/MIN Rate Random Glucose 79 MG/DL 73 MG/DL Hemoglobin A1c 4.8 % Calcium Level 7.9 MG/DL 8.2 MG/DL Total Bilirubin 0.5 MG/DL 0.6 MG/DL Direct Bilirubin 0.1 MG/DL Indirect Bilirubin 0.4 MG/DL Aspartate Amino Transf 33 U/L 39 U/L (AST/SGOT) Alanine Aminotransferase 52 U/L 51 U/L (ALT/SGPT) Alkaline Phosphatase 88 U/L 84 U/L Total Protein 7.5 GM/DL 7.4 GM/DL Albumin 3.3 GM/DL 3.3 GM/DL Lipase 864 U/L 128 U/L White Blood Count 3.5 TH/MM3 Red Blood Count 5.42 MIL/MM3 Hemoglobin 15.1 GM/DL Hematocrit 47.0 % Mean Corpuscular Volume 86.7 FL Mean Corpuscular Hemoglobin 27.9 PG Mean Corpuscular Hemoglobin 32.2 % Concent Red Cell Distribution Width 12.9 % Platelet Count 164 TH/MM3 Mean Platelet Volume 7.9 FL Neutrophils (%) (Auto) 49.5 % Lymphocytes (%) (Auto) 31.7 % Monocytes (%) (Auto) 17.3 % Eosinophils (%) (Auto) 1.1 % Basophils (%) (Auto) 0.4 % Neutrophils # (Auto) 1.7 TH/MM3 Lymphocytes # (Auto) 1.1 TH/MM3 Monocytes # (Auto) 0.6 TH/MM3 Eosinophils # (Auto) 0.0 TH/MM3 Basophils # (Auto) 0.0 TH/MM3 CBC Comment DIFF FINAL Differential Comment Physical Exam General General Appearance: Well Developed, Well Nourished, No Acute Distress, Comfortable Eyes Eye Exam: Pupils Equal, Pupils Reactive Ears & Nose Ears & Nose Exam: Nasal Mucosa [place] Throat Throat Exam: Oral Mucosa [place] & Moist Neck Neck Exam: Neck Supple, Trachea Midline Pulmonary Resp Exam: No Distress Cardiology CV Exam: Regular, Good Perfusion Gastrointestinal/Abdomen GI Exam: Soft, Non-Tender, Bowel Sounds Present, Non-Distended Musculoskeletal MS Exam: Joints Intact Integumentary Skin Exam: Warm, Dry Extremeties Extremities Exam: No Edema, Pedal Pulses Palpable Neurologic Neuro Exam: Alert, Awake, Oriented, Speech Clear, Moving All Extremities, No Focal Deficits Psychiatric Psych Exam: Appropriate Responses VTE Prophylaxis VTE Prophylaxis Device: SCDs PUD Prophylasis PUD Prophylaxis: Protonix Assessment/Plan Problem List: (1) Pancreatitis (2) Chest pain (3) Hypertension (4) ETOH abuse (5) ARIEL (acute kidney injury) Assessment/Plan Epigastric and chest discomfort relieved CT of the abdomen and pelvis, no pancreatitis noted Lipase 128 Tolerating diet well Continue IV fluids Appreciate GI input, no further recommendations. Counseled patient on EtOH use. Likely no pancreatitis per CT abdomen but elevation in lipase due to alcohol use Has cleared for discharge Cardiology consult pending Continue aspirin Acute kidney injury, renal function improving Continue IV fluids Blood pressure elevated Restart lisinopril Alcohol use, has been counseled Continue with thiamine Possible discharge today, we will wait for cardiology input Discussed with patient Discussed with RN Discussed with Dr. Puri This patient was seen by myself and Dr. Puri, this note is written on his behalf Problem Qualifiers (1) Pancreatitis: Qualified Code: K85.90 - Acute pancreatitis, unspecified complication status, unspecified pancreatitis type (2) Chest pain: Qualified Code: R07.9 - Chest pain, unspecified type (3) Hypertension: Qualified Code: I10 - Essential hypertension Martina Rogers Apr 27, 2017 08:44
--- NOTE | 2017-04-27 08:46 | HHI.DCPOC ---
Discharge Care Plan Diagnosis: (1) Pancreatitis (2) Chest pain (3) Hypertension (4) ARIEL (acute kidney injury) (5) ETOH abuse Your Health Problems Are: Chest Pain Goals to Promote Your Health * To prevent worsening of your condition and complications * To maintain your health at the optimal level Directions to Meet Your Goals Take your medications as prescribed Follow your dietary instruction Follow activity as directed Keep your appointments as scheduled Take your immunizations and boosters as scheduled If your symptoms worsen call your PCP, if no PCP go to Urgent Care Center or Emergency Room Smoking is Dangerous to Your Health. Avoid second hand smoke Call the 24-hour hour crisis hotline for domestic abuse at Martina Rogers. [facility] Apr 27, 2017 08:46
[2017-04-27] MEDS: HEPARIN SODIUM - SQ 10,000 UNITS/ML VIAL SQ SCH (09:00)
[2017-04-27] MEDS ORDERED: LISINOPRIL 20 MG TAB PO SCH (09:00)
[2017-04-27] MEDS: PANTOPRAZOLE SOD 40 MG DELAYED RELEASE TAB PO SCH (09:36)
[2017-04-27] MEDS: SODIUM CHLORIDE 0.9% FLUSH 10 ML FLUSH IV FLUSH SCH (09:36)
--- NOTE | 2017-04-27 11:21 | MB ---
cc: KELLY BROOKE DATE OF CONSULTATION: 04/27/2017 HISTORY OF PRESENT ILLNESS Mr. Templeton is a 61-year-old black male with a history of hypertension and alcohol use. He presented with left upper quadrant abdominal pain. He has not had any nausea or vomiting. He denies any angina or excessive dyspnea. PAST MEDICAL HISTORY 1. Hypertension. 2. Asthma. 3. Excessive alcohol use. MEDICATIONS 1. Lisinopril. 2. Robaxin. 3. Ibuprofen. ALLERGIES INHALER. SOCIAL HISTORY The patient does not smoke. He drinks alcohol excessively. He is and lives alone. FAMILY HISTORY The family history is negative for heart disease. REVIEW OF SYSTEMS A review of systems is otherwise negative. PHYSICAL EXAMINATION VITAL SIGNS: Blood pressure 152/93, pulse 66 and regular. HEENT: Negative. NECK: 2+ carotid upstrokes. No bruits. LUNGS: Clear. HEART: Regular with no murmur, gallop or rub. ABDOMEN: Soft. No bruit. EXTREMITIES: Without edema. 2+ distal pulses. NEUROLOGIC: Grossly nonfocal. EKG EKG was reviewed and showed normal sinus rhythm with normal axis and intervals, no acute changes. LABORATORY Hemoglobin 15.1. Potassium 3.7. Creatinine 1.3. Troponin negative. AST and ALT normal. DIAGNOSIS 1. Pancreatitis. 2. Hypertension. 3. Heavy alcohol use. DISPOSITION Th patient has no evidence of angina or excessive dyspnea. He has been ruled out for myocardial infarction by enzymes. His symptoms are significantly improved. He was counseled to cut back his alcohol use. He can be discharged home from a cardiac standpoint. He will follow-up with his primary physician after discharge. Kelly Brooke MD OIraida/JUSTA /10:59 AM /11:08 AM MARGOT
== END 2017-04-27 10:40 | disposition home or self-care (01) ==
LOC: NEPE 19:40 → NEDA 22:52 → NEPFCDU 04-26 02:25
PROVIDERS: ADMIT Specialist; ATTEND Specialist
DX: K85.90 Acute pancreatitis without necrosis or infection, unspecified (principal); R07.89 Other chest pain; N17.9 Acute kidney failure, unspecified; I10 Essential (primary) hypertension; F10.10 Alcohol abuse, uncomplicated; D72.819 Decreased white blood cell count, unspecified; J45.909 Unspecified asthma, uncomplicated
CPT/HCPCS: 71010; 74176; 80048; 80053; 80076; 82550; 82552; 83036; 83690; 83735; 84484; 85025; 85610; 85730; 93005; 94640; 94664; 96361; 96365; 96366; 96372; 99285; G0378; J1644; J3411; J7030; J7040; Q9963

== ENCOUNTER 2017-07-04 23:02 | Emergency (ER) | payer OTHER ==
[~2017-07-04] VITALS: Ht 177.8 cm; Wt 94.5 kg
[~2017-07-04 23:02] MED LIST changes: -IBUP800T23 PO; +LISI-515 PO; -ROBA500T PO; -[UNRECOGNIZED DRUG - CODE] IM
[2017-07-04 23:03] VITALS: BP 141/77; PULSE 78; RESP 16; TEMP 98.8; O2SAT 94
[2017-07-04] MEDS ORDERED: RESP: BUDESONIDE 0.5 MG/2 ML NEB NEB ONE (23:30)
--- NOTE | 2017-07-04 23:34 | PD ---
HPI Chief Complaint: Respiratory Symptoms Time Seen by Provider: 23:32 Travel History International Travel<30 days: No Contact w/Intl Traveler<30days: No Traveled to known affect area: No History of Present Illness HPI Patient is a 61-year-old male presenting to emergency for evaluation of exacerbation of his asthma. Patient states he takes [id number] Primatene as needed but has not been working for him. He has a primary doctor but he has not mentioned his asthma problems to him. He states he feels short of breath and has been wheezing. He denies any fever, chills, nausea, vomiting, chest pain. His symptoms have been going on for the last 3-4 days. PFSH Past Medical History Asthma: Yes Cancer: No Cerebrovascular Accident: No Diabetes: No Diminished Hearing: No Endocrine: No Hypertension: Yes Psychiatric: No Respiratory: Yes (ASTHMA) Immunizations Current: Yes Myocardial Infarction: No Past Surgical History Surgical History: No Previous Surgery Other Surgery: No Social History Alcohol Use: Yes (OCCASIONALLY) Tobacco Use: No Substance Use: No Allergies-Medications (Allergen,Severity, Reaction): Uncoded Allergies: ASTHMA MED (Allergy, Severe, 05/11/16) Reported Meds & Prescriptions Reported Meds & Active Scripts Active Reported Lisinopril 20 Mg Tab 20 Mg PO DAILY Review of Systems Except as stated in HPI: all other systems reviewed are Neg Respiratory: Positive: Shortness of Breath, Wheezing Physical Exam Narrative GENERAL: Developed, well-nourished, alert male. Resting comfortably in no acute distress. SKIN: Warm and dry. HEAD: Normocephalic. EYES: No scleral icterus. No injection or drainage. NECK: Supple, trachea midline. No JVD or lymphadenopathy. CARDIOVASCULAR: Regular rate and rhythm without murmurs, gallops, or rubs. RESPIRATORY: Breath sounds equal bilaterally, slightly diminished in bases. No accessory muscle use. No accessory wheezes, rhonchi, rales noted. GASTROINTESTINAL: Abdomen soft, non-tender, nondistended. MUSCULOSKELETAL: No cyanosis, or edema. BACK: Nontender without obvious deformity. No CVA tenderness. Data Data Last Documented VS Vital Signs Date Time Temp Pulse Resp B/P (MAP) Pulse Ox O2 Delivery O2 Flow Rate FiO2 07/04/17 23:03 98.8 78 16 141/77 (98) 94 Room Air Orders Orders Albuterol-Ipratropium Neb (Duoneb Neb) (07/04/17 23:30) Budesonide Neb (Pulmicort Respule Neb) (07/04/17 23:30) Methylprednisolone So Succ Inj (Solumedr (07/04/17 23:45) MDM Medical Decision Making Medical Screen Exam Complete: Yes Emergency Medical Condition: Yes Medical Record Reviewed: Yes Interpretation(s) Vital Signs Date Time Temp Pulse Resp B/P (MAP) Pulse Ox O2 Delivery O2 Flow Rate FiO2 07/04/17 23:03 98.8 78 16 141/77 (98) 94 Room Air Differential Diagnosis Asthma exacerbation versus bronchitis versus URI versus other Narrative Course Patient is a 7-year-old male that presented to the emergency department for evaluation of an asthma exacerbation. Patient's vital signs are stable, pulse oximetry is 94% on room air. Patient will be given DuoNeb 3 and budesonide as well as Solu-Medrol IM. Will reassess. He should reassess, he reports improvement. Patient was encouraged follow-up with his primary care provider and mentioned the fact that the asthma medications he's been using [id number] are not helping. He department for any new or worsening symptoms. He verbalized understanding of instructions. Patient stable for discharge. Diagnosis Primary Impression: Asthma exacerbation Qualified Codes: J45.901 - Unspecified asthma with (acute) exacerbation Additional Impression: Strain of cervical portion of left trapezius muscle Referrals: John Villafana III, MD 3 days Patient Instructions: Asthma (ED), General Instructions Additional Instructions: Use medication as needed and as directed Follow-up with your primary doctor Return to emergency department for any new or worsening symptoms Med/Other Pt SpecificInfo: Prescription(s) given Scripts Prednisone (Prednisone) 20 Mg Tab 20 MG PO BID for 3 Days, #6 TAB 0 Refills Prov: Lisa Davila 07/05/17 Albuterol 18 GM Inh (Ventolin Hfa 18 GM Inh) 90 Mcg/Act Aer 2 PUFF INH Q4-6H Y for SHORTNESS OF BREATH, #1 INHALER 0 Refills Prov: Lisa Davila 07/05/17 Disposition: 01 DISCHARGE HOME Condition: Stable Lisa Davila Jul 04, 2017 23:34
[2017-07-04] MEDS ORDERED: methylPREDNISolone SOD SUCC 125 MG/2 ML VIAL IM ONE (23:45)
[2017-07-04] MEDS: RESP: ALBUTEROL 2.5 MG/IPRATROPIUM 0.5 MG NEB (SCH) INH ×2 (23:45→23:46)
[2017-07-05] MEDS ORDERED: PRED20 PO (00:15)
[2017-07-05] MEDS ORDERED: VENTAER INH (00:15)
[2017-07-05 00:21] VITALS: O2SAT 98
== END 2017-07-05 00:52 | disposition home or self-care (01) ==
LOC: NEPD 23:02
DX: J45.901 Unspecified asthma with (acute) exacerbation (principal); S16.1XXA Strain of muscle, fascia and tendon at neck level, initial encounter; I10 Essential (primary) hypertension; Z79.899 Other long term (current) drug therapy; X58.XXXA Exposure to other specified factors, initial encounter
CPT/HCPCS: 94640; 94664; 99285; J7626

== ENCOUNTER 2017-09-19 13:59 | Emergency (ER) | payer SELFPAY ==
[~2017-09-19] VITALS: Ht 177.8 cm; Wt 88.5 kg
[~2017-09-19 13:59] MED LIST changes: +PRED20 PO; +VENTAER INH
[2017-09-19 14:00] VITALS: BP 172/79; PULSE 80; RESP 18; TEMP 98.8; O2SAT 98
[2017-09-19 14:28] LABS: BILIRUBIN, URINE NEG (NEG); BLOOD, URINE TRACE (NEG); GLUCOSE,URINE NEG (NEG); KETONE, URINE NEG (NEG); MUCUS URINE FEW /lpf (OCC); NITRITE,URINE NEG (NEG); PH, URINE 5.5 (5.0-8.5); URINE COLOR YELLOW (YELLW/STRAW); URINE LEUKOCYTE ESTERASE NEG (NEG)
[2017-09-19 14:30] LABS: BASOPHIL % 0.2 % (0.0-2.0); EOSINOPHIL # 0.1 TH/MM3 (0-0.4); EOSINOPHIL % 0.8 % (0.0-4.0); HEMATOCRIT 42.1 % (39.0-51.0); HEMOGLOBIN 14.2 GM/DL (13.0-17.0); LYMPH % 24.2 % (9.0-44.0); LYMPHOCYTE # 1.7 TH/MM3 (1.0-4.8); MEAN CELL VOLUME 85.6 FL (80.0-100.0); MEAN CORPUSCULAR HEMOGLOBIN 28.9 PG (27.0-34.0); MEAN CORPUSCULAR HGB CONC 33.7 % (32.0-36.0); MEAN PLATELET VOLUME 7.2 FL (7.0-11.0); MONO % 18.9 % (0.0-8.0); MONOCYTE # 1.3 TH/MM3 (0-0.9); NEUT % 55.9 % (16.0-70.0); PLATELET COUNT 259 TH/MM3 (150-450); RED BLOOD COUNT 4.91 MIL/MM3 (4.50-5.90); RED CELL DISTRIBUTION WIDTH 12.6 % (11.6-17.2); WHITE BLOOD COUNT 7.1 TH/MM3 (4.0-11.0)
[2017-09-19 14:43] LABS: ALBUMIN 3.4 GM/DL (3.4-5.0); ALT (GPT) 45 U/L (12-78); AST (GOT) 26 U/L (15-37); BICARBONATE 29.4 MEQ/L (21.0-32.0); BLOOD UREA NITROGEN 15 MG/DL (7-18); CALCIUM 7.9 MG/DL (8.5-10.1); CHLORIDE 104 MEQ/L (98-107); CREATININE 1.48 MG/DL (0.60-1.30); GLOMERULAR FILTRATION RATE 59 ML/MIN (>89); GLUCOSE,RANDOM 102 MG/DL (74-106); LIPASE 340 U/L (73-393); SODIUM (NA) 138 MEQ/L (136-145)
[2017-09-19 14:45] LABS: ALKALINE PHOSPHATASE 72 U/L (45-117); TOTAL BILIRUBIN ADULT 0.5 MG/DL (0.2-1.0); TOTAL PROTEIN 7.8 GM/DL (6.4-8.2)
[2017-09-19] MEDS ORDERED: SODIUM CHLOR 0.9% 1000 ML INJ 1,000 ML IV ONE (15:00)
--- NOTE | 2017-09-19 15:07 | PD ---
HPI Chief Complaint: Abdominal Pain Time Seen by Provider: 14:58 Travel History International Travel<30 days: No Contact w/Intl Traveler<30days: No Traveled to known affect area: No History of Present Illness HPI 61-year-old male came to the emergency room with history of diarrhea and abdominal pain for past 2 days. Patient has history appendicitis and hence wanted to make sure he does not have hepatitis again. He continues to drink alcohol. He also says that he ate a 2-day-old coleslaw that was sitting outside before he started getting sick. No history of vomiting. Vital signs are stable. There was blood work done prior to patient coming into the ER. He is awake and answering questions appropriately. [facility] Past Medical History Narrative Medical List of his past medical, surgical, social and family history reviewed from the nursing note. Asthma: Yes Cancer: No Cerebrovascular Accident: No Diabetes: No Diminished Hearing: No Endocrine: No Hypertension: Yes Psychiatric: No Respiratory: Yes (ASTHMA) Immunizations Current: Yes Myocardial Infarction: No Pancreatitis: Yes Tetanus Vaccination: < 5 Years Influenza Vaccination: No Past Surgical History Other Surgery: No Social History Alcohol Use: Yes (daily) Tobacco Use: No Substance Use: No Allergies-Medications (Allergen,Severity, Reaction): Uncoded Allergies: ASTHMA MED (Allergy, Severe, 05/11/16) Comments List of his allergies reviewed from the nursing note. Reported Meds & Prescriptions Reported Meds & Active Scripts Active Lomotil (Diphenoxylate-Atropine) 2.5-0.025 Mg Tab 1 Tab PO Q6H PRN Prednisone 20 Mg Tab 20 Mg PO BID 3 Days Ventolin Hfa 18 GM Inh (Albuterol Sulfate) 90 Mcg/Act Aer 2 Puff INH Q4-6H PRN Reported Lisinopril 20 Mg Tab 20 Mg PO DAILY Narrative Medication List of his home medications reviewed from the nursing note. Review of Systems Except as stated in HPI: all other systems reviewed are Neg Gastrointestinal: Positive: Diarrhea, Abdominal Pain Physical Exam Narrative GENERAL: Awake, alert, no obvious distress SKIN: Focused skin assessment warm/dry. HEAD: Atraumatic. Normocephalic. EYES: Pupils equal and round. No scleral icterus. No injection or drainage. ENT: No nasal bleeding or discharge. Mucous membranes pink and moist. NECK: Trachea midline. No JVD. CARDIOVASCULAR: Regular rate and rhythm. No murmur appreciated. RESPIRATORY: No accessory muscle use. Clear to auscultation. Breath sounds equal bilaterally. GASTROINTESTINAL: Abdomen soft, non-tender, nondistended. Hepatic and splenic margins not palpable. MUSCULOSKELETAL: No obvious deformities. No clubbing. No cyanosis. No edema. NEUROLOGICAL: Awake and alert. No obvious cranial nerve deficits. Motor grossly within normal limits. Normal speech. PSYCHIATRIC: Appropriate mood and affect; insight and judgment normal. Data Data Last Documented VS Vital Signs Date Time Temp Pulse Resp B/P (MAP) Pulse Ox O2 Delivery O2 Flow Rate FiO2 09/19/17 16:22 09/19/17 14:00 98.8 80 18 98 Orders Orders Complete Blood Count With Diff (09/19/17 14:10) Comprehensive Metabolic Panel (09/19/17 14:10) Urinalysis - C+S If Indicated (09/19/17 14:10) Lipase (09/19/17 14:10) Sodium Chlor 0.9% 1000 Ml Inj (Ns 1000 M (09/19/17 15:00) Loperamide (Imodium) (09/19/17 15:15) Ed Discharge Order (09/19/17 15:19) Labs Laboratory Tests Test 09/19/17 14:10 09/19/17 14:15 Urine Color YELLOW Urine Turbidity CLEAR Urine pH 5.5 Urine Specific [place] 1.019 Urine Protein TRACE mg/dL Urine Glucose (UA) NEG mg/dL Urine Ketones NEG mg/dL Urine Occult Blood TRACE Urine Nitrite NEG Urine Bilirubin NEG Urine Urobilinogen LESS THAN 2.0 MG/DL Urine Leukocyte Esterase NEG Urine RBC LESS THAN 1 /hpf Urine WBC 1 /hpf Urine Mucus FEW /lpf Microscopic Urinalysis Comment CULT NOT INDICATED White Blood Count 7.1 TH/MM3 Red Blood Count 4.91 MIL/MM3 Hemoglobin 14.2 GM/DL Hematocrit 42.1 % Mean Corpuscular Volume 85.6 FL Mean Corpuscular Hemoglobin 28.9 PG Mean Corpuscular Hemoglobin Concent 33.7 % Red Cell Distribution Width 12.6 % Platelet Count 259 TH/MM3 Mean Platelet Volume 7.2 FL Neutrophils (%) (Auto) 55.9 % Lymphocytes (%) (Auto) 24.2 % Monocytes (%) (Auto) 18.9 % Eosinophils (%) (Auto) 0.8 % Basophils (%) (Auto) 0.2 % Neutrophils # (Auto) 4.0 TH/MM3 Lymphocytes # (Auto) 1.7 TH/MM3 Monocytes # (Auto) 1.3 TH/MM3 Eosinophils # (Auto) 0.1 TH/MM3 Basophils # (Auto) 0.0 TH/MM3 CBC Comment DIFF FINAL Differential Comment Blood Urea Nitrogen 15 MG/DL Creatinine 1.48 MG/DL Random Glucose 102 MG/DL Total Protein 7.8 GM/DL Albumin 3.4 GM/DL Calcium Level 7.9 MG/DL Alkaline Phosphatase 72 U/L Aspartate Amino Transf (AST/SGOT) 26 U/L Alanine Aminotransferase (ALT/SGPT) 45 U/L Total Bilirubin 0.5 MG/DL Sodium Level 138 MEQ/L Potassium Level 3.9 MEQ/L Chloride Level 104 MEQ/L Carbon Dioxide Level 29.4 MEQ/L Anion Gap 5 MEQ/L Estimat Glomerular Filtration Rate 59 ML/MIN Lipase 340 U/L MDM Medical Decision Making Medical Screen Exam Complete: Yes Emergency Medical Condition: Yes Medical Record Reviewed: Yes Differential Diagnosis Infectious diarrhea, viral illness Narrative Course 3:17 PM blood test results of back and within acceptable limits. Patient will be given 1 L of IV fluid bolus. I'm giving him by mouth Lomotil as well. He' ll be discharged home after that. Procedures EKG Prior to Arrival: No Diagnosis Primary Impression: Diarrhea Qualified Codes: A09 - Infectious gastroenteritis and colitis, unspecified Additional Impression: Viral illness Referrals: Primary Care Physician Additional Instructions: Take the medication as per the prescription direction. Take Brooke diet that includes banana, rice, applesauce, tea and toast. Do not drink alcohol. Med/Other Pt SpecificInfo: Prescription(s) given Scripts Diphenoxylate-Atropine (Lomotil) 2.5-0.025 Mg Tab 1 TAB PO Q6H Y for DIARRHEA, #4 TAB 0 Refills Prov: Crista Jasso MD 09/19/17 Disposition: 01 DISCHARGE HOME Condition: Stable Crista Jasso MD Sep 19, 2017 15:07
[2017-09-19] MEDS ORDERED: LOPERAMIDE HCL 2 MG CAP PO ONE (15:15)
[2017-09-19] MEDS ORDERED: LOMO2.5T PO (15:19)
== END 2017-09-19 16:45 | disposition home or self-care (01) ==
LOC: NEPD 13:59
DX: R19.7 Diarrhea, unspecified (principal); B34.9 Viral infection, unspecified; J45.909 Unspecified asthma, uncomplicated; I10 Essential (primary) hypertension; Z87.19 Personal history of other diseases of the digestive system; Z79.51 Long term (current) use of inhaled steroids; Z79.899 Other long term (current) drug therapy
CPT/HCPCS: 80053; 81001; 83690; 85025; 96360; 99284; J7030